=== PATIENT | male | born 1970 | race Caucasian/White ===

== ENCOUNTER 2016-11-22 13:05 | Emergency (ER) | payer OTHER ==
[2016-11-22] MEDS ORDERED: ALBUTEROL/IPRATROPIUM 1 VIAL SOL ONE (15:14)
[2016-11-22] MEDS ORDERED: ALBUTEROL/IPRATROPIUM 1 VIAL SOL INH ONE (15:16)
[2016-11-22 15:20] VITALS: RESP 22
[2016-11-22 16:41] VITALS: BP 138/89; PULSE 76; TEMP 98.4; O2SAT 97
== END 2016-11-22 16:37 | disposition home or self-care (01) | DRG 204 ==
LOC: ED 13:05
DX: R05 Cough (principal)
CPT/HCPCS: 71010; 99283; J7620

== ENCOUNTER 2017-05-09 21:27 | Emergency (ER) | payer BC, OTHER ==
[2017-05-09 21:41] VITALS: RESP 18; TEMP 97.9; O2SAT 96
[2017-05-09] MEDS ORDERED: ASPIRIN 81 MG CHEWABLE CTB PO STA (22:13)
[2017-05-09] MEDS ORDERED: METOPROLOL TARTRATE 5 MG/5 ML SOL IV PRN (22:13)
[2017-05-09] MEDS ORDERED: NITROGLYCERIN 0.4 MG TAB SL PRN (22:13)
[2017-05-09] MEDS ORDERED: SODIUM CHLORIDE 0.9% FLUSH 10 ML SOL IV PRN (22:13)
[2017-05-09 22:24] LABS: BASOPHILS % (AUTO) 1 % (0-3); EOSINOPHILS % (AUTO) 4 % (0-9); HEMATOCRIT 45 % (39-53); MEAN CORPUSCULAR HGB CONC 36.9 gm/dl (32.0-36.0); MEAN CORPUSCULAR VOLUME 86 fL (80-100); MONOCYTES % (AUTO) 7.6 % (0-12); NEUTROPHILS % (AUTO) 54.2 % (37-80)
[2017-05-09] MEDS ORDERED: ASPIRIN 81 MG CHEWABLE CTB ONE (22:36)
[2017-05-09 22:53] LABS: CALCIUM 8.3 mg/dl (8.5-10.1); GLOM FILT RATE 83 mL/min (>60); SODIUM 139 mMol/L (136-145); THYROID STIMULATING HORMONE 21.146 uIU/ml (0.358-3.740)
[2017-05-09 23:50] VITALS: BP 147/98; PULSE 82
[2017-05-10 17:40] LABS: HEMOGLOBIN A1C 6.3 % (4.8-6.0)
== END 2017-05-09 23:06 | disposition home or self-care (01) ==
LOC: ED 21:27
DX: R07.89 Other chest pain (principal); M79.602 Pain in left arm; I10 Essential (primary) hypertension; E03.9 Hypothyroidism, unspecified; R73.9 Hyperglycemia, unspecified
CPT/HCPCS: 36415; 71010; 80048; 82550; 83036; 84443; 84484; 85025; 85610; 85730; 93005; 99284